=== PATIENT | male | born 1955 | race Two or more races ===

== ENCOUNTER → 2019-09-25 | Day surgery (SDC) | payer MEDICAID ==
[2019-09-22 11:55] LABS: Basophils # (auto) 0.1 uL; Basophils % (auto) 0.9 % (0.0-2.0); Eosinophils # (auto) 0.2 uL; Eosinophils % (auto) 2.3 % (0.0-7.0); Hematocrit 45.2 % (41.0-53.0); Hemoglobin 15.1 g/dL (13.5-17.5); Lymphocytes # (auto) 2.6 uL; Lymphocytes % (auto) 33.9 % (10.0-50.0); Mean Corpuscular Hemoglobin 29.7 pg (28.0-32.0); Mean Corpuscular Hgb Conc. 33.4 g/dL (32.0-36.0); Monocytes # (auto) 0.7 uL; Monocytes % (auto) 8.5 % (0.0-12.0); Neutrophils # (auto) 4.2 uL; Neutrophils % (auto) 54.4 % (37.0-80.0); Nucleated Red Blood Cells % 0.1 %; Platelet Count (auto) 275 10^3/uL (140-450); Red Blood Cells 5.08 10^6/uL (4.5-5.90); Red Cell Distribution Width 13.9 % (11.8-14.3); White Blood Cell 7.7 10^3/uL (4.4-10.8)
[2019-09-22 12:20] LABS: INR 0.99 (0.9-1.15); Partial Thromboplastin Time 25.6 sec (23.64-32.05)
[2019-09-22 12:27] LABS: Albumin 3.6 g/dL (3.4-5.0); Calcium 8.9 mg/dL (8.5-10.1); Potassium 3.9 mmol/L (3.5-5.1)
[2019-09-22 12:29] LABS: BUN/Creatinine Ratio 25.2; Bilirubin, Total 0.4 mg/dL (0.2-1.0); Total Protein 8.1 g/dL (6.4-8.2)
[2019-09-22 12:48] LABS: Urine Bacteria NONE SEEN /hpf (None Seen); Urine Blood Negative /uL (Negative); Urine Mucus FEW (None Seen); Urine Specific Gravity 1.017 (1.001-1.035); Urine WBC 2 /hpf (0 - 3)
[~2019-09-25] VITALS: Ht 162.6 cm; Wt 80.7 kg
[~2019-09-25] MED LIST: ACCU-CHEK COMFORT CURVE STRIP VI ONE; CIPROFLOXACIN 400MG/200ML 200 ML IV ONE; HYDROmorphone HCL 2 MG/ML VL IV PRN; IBUP800T24 PO; LIDOCAINE 1% HCL (LOCAL ANESTH.) INJ 20ML MDV ONE; LIDOCAINE W/ EPINEPHRINE 1% 20ML VIAL ONE; METF-489 PO; METO25TA93 PO; METOCLOPRAMIDE HCL 5MG/ml INJ 2ml VIAL ONE; MIDAZOLAM HCL 1MG/1ML-2 ML VIAL ONE; NALOXONE HCL 0.4 MG/ML VIAL IV PRN; NEOMYCIN-BACITRACIN-POLYM 15GM TOP OINT TOP ONE; ONDANSETRON HCL 4 MG/2 ML VIAL IV PRN; PROPOFOL 10 MG/ML 20 ML IV ONE; ROCURONIUM 10MG/ML 10ML VIAL IV ONE; SUCCINYLCHOLINE CHLORIDE 20 MG/ML 10ML VIAL IV ONE; VANCOMYCIN HCL 1000 MG VL ONE; ceFAZolin 1GM VL ONE; fentaNYL CITRATE 100 MCG/2 ML VL ONE
[2019-09-25 10:33] VITALS: BP 130/78
== END | disposition home or self-care (01) ==
LOC: SUR 06:57
PROVIDERS: ATTEND Urology
DX: N39.3 Stress incontinence (female) (male) (principal); I10 Essential (primary) hypertension; E11.9 Type 2 diabetes mellitus without complications; G47.33 Obstructive sleep apnea (adult) (pediatric); K21.9 Gastro-esophageal reflux disease without esophagitis; M19.90 Unspecified osteoarthritis, unspecified site; E66.9 Obesity, unspecified; Z85.46 Personal history of malignant neoplasm of prostate; Z79.84 Long term (current) use of oral hypoglycemic drugs; Z79.899 Other long term (current) drug therapy; Z87.442 Personal history of urinary calculi; Z90.89 Acquired absence of other organs; Z68.31 Body mass index [BMI] 31.0-31.9, adult; Z87.891 Personal history of nicotine dependence
CPT/HCPCS: 36415; 53445; 80053; 81001; 82962; 85025; 85610; 85730; C1771; C1815; J0330; J0690; J0744; J2001; J2250; J2704; J2765; J3010; J3370

== ENCOUNTER 2020-04-04 06:18 | Day surgery (SDC) | payer MEDICAID ==
[2020-04-02 13:35] LABS: Basophils # (auto) 0.1 10 ^3/uL (0-0.2); Basophils % (auto) 0.7 % (0.0-2.0); Eosinophils # (auto) 0.3 10 ^3/uL (0-0.8); Eosinophils % (auto) 3.5 % (0.0-7.0); Hematocrit 41.7 % (41.0-53.0); Hemoglobin 14.1 g/dL (13.5-17.5); Lymphocytes # (auto) 2.9 10 ^3/uL (0.4-5.4); Lymphocytes % (auto) 34.9 % (10.0-50.0); Mean Corpuscular Hemoglobin 29.8 pg (28.0-32.0); Mean Corpuscular Hgb Conc. 33.8 g/dL (32.0-36.0); Monocytes # (auto) 0.8 10 ^3/uL (0-1.3); Monocytes % (auto) 9.5 % (0.0-12.0); Neutrophils # (auto) 4.3 10 ^3/uL (1.6-8.6); Neutrophils % (auto) 51.4 % (37.0-80.0); Platelet Count (auto) 265 10^3/uL (140-450); Red Blood Cells 4.74 10^6/uL (4.5-5.90); Red Cell Distribution Width 14.9 % (11.8-14.3); White Blood Cell 8.3 10^3/uL (4.4-10.8)
[2020-04-02 13:39] LABS: Urine Bacteria FEW /hpf (None Seen); Urine Blood Negative /uL (Negative); Urine Specific Gravity 1.018 (1.001-1.035); Urine WBC 4 /hpf (0 - 3)
[2020-04-02 13:49] LABS: INR 0.97 (0.9-1.15); Partial Thromboplastin Time 25.6 sec (23.64-32.05)
[2020-04-02 13:58] LABS: Albumin 3.6 g/dL (3.4-5.0); BUN/Creatinine Ratio 27.9; Calcium 9.1 mg/dL (8.5-10.1); Potassium 3.8 mmol/L (3.5-5.1)
[2020-04-02 14:00] LABS: Bilirubin, Total 0.5 mg/dL (0.2-1.0); Total Protein 8.5 g/dL (6.4-8.2)
[~2020-04-04] VITALS: Ht 167.6 cm; Wt 84.8 kg
[~2020-04-04 06:18] MED LIST changes: -ACCU-CHEK COMFORT CURVE STRIP VI ONE; -CIPROFLOXACIN 400MG/200ML 200 ML IV ONE; +DICL-176 PO; -HYDROmorphone HCL 2 MG/ML VL IV PRN; -LIDOCAINE 1% HCL (LOCAL ANESTH.) INJ 20ML MDV ONE; -LIDOCAINE W/ EPINEPHRINE 1% 20ML VIAL ONE; -METOCLOPRAMIDE HCL 5MG/ml INJ 2ml VIAL ONE; -MIDAZOLAM HCL 1MG/1ML-2 ML VIAL ONE; -NALOXONE HCL 0.4 MG/ML VIAL IV PRN; -NEOMYCIN-BACITRACIN-POLYM 15GM TOP OINT TOP ONE; -ONDANSETRON HCL 4 MG/2 ML VIAL IV PRN; -PROPOFOL 10 MG/ML 20 ML IV ONE; -ROCURONIUM 10MG/ML 10ML VIAL IV ONE; -SUCCINYLCHOLINE CHLORIDE 20 MG/ML 10ML VIAL IV ONE; -VANCOMYCIN HCL 1000 MG VL ONE; -ceFAZolin 1GM VL ONE; -fentaNYL CITRATE 100 MCG/2 ML VL ONE
[2020-04-04] MEDS ORDERED: LIDOCAINE W/ EPINEPHRINE 1 % INJ 30ML ONE (07:07)
[2020-04-04] MEDS ORDERED: ceFAZolin 1GM/50ML 50 ML IV ONE (07:29)
[2020-04-04] MEDS ORDERED: SUCCINYLCHOLINE CHLORIDE 20 MG/ML 10ML VIAL IV ONE (07:29)
[2020-04-04] MEDS ORDERED: fentaNYL CITRATE 100 MCG/2 ML VL ONE (07:42)
[2020-04-04] MEDS ORDERED: MIDAZOLAM HCL 1MG/1ML-2 ML VIAL ONE (07:42)
[2020-04-04] MEDS ORDERED: MEPERIDINE HCL (50 MG/ML) 1 ML VIAL ONE (07:43)
[2020-04-04] MEDS ORDERED: BACITRACIN INJ 50000 UNIT VIAL ONE (07:54)
[2020-04-04] MEDS ORDERED: DexAMETHasone SOD PHOS 10MG/1ML VIAL INJ ONE (08:08)
[2020-04-04] MEDS ORDERED: PROPOFOL 10 MG/ML 20 ML IV ONE (08:18)
[2020-04-04] MEDS ORDERED: ONDANSETRON HCL 4 MG/2 ML VIAL ONE (08:25)
[2020-04-04] MEDS ORDERED: HYDROmorphone HCL 2 MG/ML VL IV PRN (09:15)
[2020-04-04] MEDS ORDERED: MORPHINE SULFATE 4 MG/ML SYR/VIAL IV PRN (09:15)
[2020-04-04] MEDS ORDERED: ONDANSETRON HCL 4 MG/2 ML VIAL IV PRN (09:15)
[2020-04-04] MEDS ORDERED: LABETALOL HCL 5 MG/ML 4ML SYRINGE IV PRN (09:15)
[2020-04-04] MEDS ORDERED: ePHEDrine SULFATE 50 MG/ML AMP IV PRN (09:15)
[2020-04-04] MEDS ORDERED: ACCU-CHEK COMFORT CURVE STRIP VI ONE (09:15)
[2020-04-04] MEDS ORDERED: MIDAZOLAM HCL 1MG/1ML-2 ML VIAL IV PRN (09:15)
[2020-04-04 09:29] VITALS: BP 146/85
== END 2020-04-04 09:48 | disposition home or self-care (01) ==
LOC: SUR 06:18
PROVIDERS: ATTEND Urology
DX: R32 Unspecified urinary incontinence (principal); I25.10 Atherosclerotic heart disease of native coronary artery without angina pectoris; E11.9 Type 2 diabetes mellitus without complications; I10 Essential (primary) hypertension; Z79.84 Long term (current) use of oral hypoglycemic drugs; Z85.46 Personal history of malignant neoplasm of prostate; Z79.899 Other long term (current) drug therapy; Z98.890 Other specified postprocedural states; Z90.79 Acquired absence of other genital organ(s); Z11.59 Encounter for screening for other viral diseases
CPT/HCPCS: 36415; 53449; 80053; 81001; 82962; 85025; 85610; 85730; J0330; J0690; J1100; J2001; J2175; J2250; J2405; J2704; J3010; U0003